=== PATIENT | female | born 1990 | race African-American/Black ===

== ENCOUNTER 2018-11-30 07:38 | Emergency (ER) | payer MEDICAID ==
[~2018-11-30] VITALS: Ht 172.7 cm; Wt 68.0 kg
[2018-11-30 12:06] LABS: BASOPHILS % 0.7 % (0.0-2.0); EOSINOPHILS % 1.6 % (0.0-5.0); HEMATOCRIT. 26.1 % (36.0-48.0); HEMOGLOBIN. 8.1 g/dL (12.0-16.0); LYMPHOCYTES % 17.9 % (20.0-50.0); MEAN CORPUSCULAR VOLUME 67.8 fL (81.0-99.0); MEAN PLATELET VOLUME 8.8 fl (7.4-10.4); MONOCYTES % 6.5 % (2.0-8.0); NEUTROPHILS % 73.3 % (40.0-76.0); PLATELET 301 x1000/uL (130-400); RED BLOOD CELL COUNT 3.85 mill/uL (4.2-5.4); RED CELL DISTRIBUTION WIDTH 16.9 % (11.6-14.6)
[2018-11-30 12:11] LABS: CHLORIDE 109 mEq/L (98-107)
[2018-11-30 12:24] LABS: HCG SCREEN NEGATIVE
[2018-11-30 12:35] LABS: PLATELET ESTIMATE NORMAL
[2018-11-30 15:36] VITALS: BP 118/78
== END 2018-11-30 15:25 | disposition home or self-care (01) ==
LOC: ER 07:38
DX: K59.00 Constipation, unspecified (principal); R10.9 Unspecified abdominal pain; F12.10 Cannabis abuse, uncomplicated
CPT/HCPCS: 36415; 74018; 84703; 99284